=== PATIENT | female | born 1965 | race Hispanic/Latino ===

== ENCOUNTER 2021-12-05 08:39 | Outpatient (CLI) | payer MEDICARE ==
--- NOTE | 2021-12-05 11:33 | Cat Scan Report ---
CTA ABDOMEN, PELVIS, AND LOWER EXTREMITIES INDICATION: I70.213 LEFT CALF PAIN OMNI 350 100 ML. TECHNIQUE: Axial CT images were obtained through the abdomen, pelvis and lower extremities after injection of IV contrast. 3 plane MIP reconstructions were produced. All CT scans at this location are performed usi ng CT dose reduction for NATAN by means of automated exposure control. COMPARISON: None available. FINDINGS: CTA ABDOMEN: Abdominal Aorta: Moderate to advanced diffuse atherosclerotic calcification with mild mural plaque. N o acute finding. Celiac Artery: No significant abnormality. Superior Mesenteric Artery: Mild atherosclerotic calcification proximally. Right Renal Artery: No significant abnormality. Left Renal Artery: Mild atherosclerotic calcification at the origin. Inferior Mesenteric Artery: No significant abnormality. CTA PELVIS: RIGHT: Common Iliac Artery: Moderate atherosclerotic calcification. Internal Iliac Artery: Mild atherosclerotic calcification. External Iliac Artery: Mild atherosclerotic calcification. LEFT: Common Iliac Artery: Moderate atherosclerotic calcification. There is approximately 40% narrowing at the origin (axial series 2 image 177) Internal Iliac Artery: Mild atherosclerotic calcification. External Iliac Artery: Minimal atherosclerotic calcification. CTA LOWER EXTREMITIES: RIGHT LOWER EXTREMITY: Common Femoral Artery: No significant abnormality. Superficial Femoral Artery: Minimal atherosclerotic calcification. Profunda Femoral Artery: No significant abnormality. Popliteal Artery: Minimal atherosclerotic calcification. Anterior Tibial Artery: No significant abnormality. Tibioperoneal Trunk: No significant abnormality. Posterior Tibial Artery: No significant abnormality. Peroneal Artery: No significant abnormality. LEFT LOWER EXTREMITY: Common Femoral Artery: No significant abnormality. Superficial Femoral Artery: No significant abnormality. Profunda Femoral Artery: No significant abnormality. Popliteal Artery: No significant abnormality. Anterior Tibial Artery: No significant abnormality. Tibioperoneal Trunk: No significant abnormality. Posterior Tibial Artery: No significant abnormality. Peroneal Artery: No significant abnormality. NONTARGET STRUCTURES: ABDOMEN:There is a patent accessory duct of Santorini at the pancreatic head which drains the body/ta il (axial series 2 images [id number]). PELVIS:No significant abnormality. LOWER EXTREMITIES:No significant abnormality. SKELETAL: No significant abnormality. ADDITIONAL FINDINGS: None. IMPRESSION: 1. No acute findings. No soft tissue or skeletal abnormality is seen within the left calf. 2. Atherosclerotic disease as above, overall this is mild. Contrast bolus "outlines" the axial images within the distal forelegs. This limits evaluation of runoff to the ankles. However, there appears t o be three-vessel runoff bilaterally. 3. Additional incidental findings as above. Signer Name: Juan C Johnson MD Signed: 12/05/2021 11:28 AM Workstation Name: [id number]
== END 2021-12-05 08:40 | disposition home or self-care (01) ==
LOC: CT 08:39
PROVIDERS: ATTEND Radiology Diagnostic Radiology
DX: I70.213 Atherosclerosis of native arteries of extremities with intermittent claudication, bilateral legs (principal); I87.323 Chronic venous hypertension (idiopathic) with inflammation of bilateral lower extremity; I70.1 Atherosclerosis of renal artery; I70.0 Atherosclerosis of aorta; I70.8 Atherosclerosis of other arteries; K55.1 Chronic vascular disorders of intestine
CPT/HCPCS: 36415; 75635; 82565; 84520; Q9967